=== PATIENT | female | born 1965 | race Caucasian/White ===

== ENCOUNTER 2022-05-07 07:05 | Emergency (ER) | payer OTHER, SELFPAY ==
[2022-05-07 07:12] VITALS: BP 140/95; PULSE 78; RESP 18; TEMP 36.4; O2SAT 95; BMI 38.7
[2022-05-07 07:30] VITALS: BP 139/89; PULSE 74; O2SAT 93
[2022-05-07 07:50] VITALS: PULSE 73; O2SAT 94
--- NOTE | 2022-05-07 07:55 | ED_ITS ---
HPI - Arrhythmia/Palpitations General Chief Complaint: Arrhythmia/Palpitations Stated Complaint: SVT/A-fib Time Seen by Provider: 05/07/22 07:15 Source: patient and family Mode of arrival: ambulatory Limitations: no limitations History of Present Illness HPI narrative: Patient with a history of runs of palpitations since January. Seem to start after she had COVID in December. She has had appropriate and thorough outpatient workup including an 8 day Holter monitor which did show some short bursts of SVT. She had an echo 2 weeks ago and followed up with Cardiology last week. They are recommending conservative management. She does have a known history of hypothyroidism, surgically resected and she is on replacement levothyroxine but reports that her levels are closely monitored. She states that this morning she awoke at around 4:00 a.m. which is about 3 hours prior to presentation with a feeling of rapid heart rate. She wears an Apple watch and did detect the elevated heart rate. It has called these AFib in the past, even episodes that were found to be SVT through the Holter monitor. Come on suddenly and are tend to be relieved suddenly which is more consistent with SVT anyway. She says that the heart rate was ranging about 130-150. She got up walked around thought it would go away and it did not. After about an hour she woke her to let him know that she thought she should seek medical evaluation. She was not experiencing any chest pain or shortness of breath. Her oncology patient navigator it said that it can be helpful if she has these episodes to try to catch them on a 12 lead EKG. She got the shower in shortly after getting out of the shower started coming to the hospital when she realized that she had flipped out of the rhythm. She 2nd guess coming in for evaluation but since she was already here thought it best to do so. At the time of my interview and at triage she is completely asymptomatic. She has no prior history of coronary artery disease. She does not smoke, no prior history of PE. Does not take anticoagulants. Did not try any vagal maneuvers at home to try to relieve her symptoms and was unsure of what these were when I discussed them with her. Past medical history notable for hypothyroidism, surgically induced, anxiety. Medications, past medical history, surgical history and allergies and social history reviewed from the [facility] records. Related Data Home Medications Medication Instructions Recorded Confirmed buspirone 10 mg tablet mg 05/07/22 fluticasone propionate 50 intranasal 05/07/22 mcg/actuation nasal spray,suspension hydroxyzine HCl 10 mg tablet mg 05/07/22 levothyroxine 150 mcg tablet mcg 05/07/22 lorazepam 0.5 mg tablet mg 05/07/22 mirtazapine 30 mg tablet mg 05/07/22 Allergies Allergy/AdvReac Type Severity Reaction Status Date / Time SSRI Allergy Uncoded 05/07/22 07:19 Review of Systems Status of ROS: Reports: 10 or more systems reviewed and unremarkable except as noted in History and below [facility] Social History Smoking Status: Never smoker Do you use any of these nicotine containing products: None Second hand tobacco smoke exposure: No How often do you have a drink containing alcohol: monthly or less How many standard drinks containing alcohol do you have on a typical day: 1 or 2 How often do you have six or more drinks on one occasion: Never AUDIT-C Alcohol total score: 1 Non-prescribed substance use: denies use Exam Const: Vital Signs, click to edit/add: Vital Signs - 24 hr 05/07/22 07:12 05/07/22 07:50 05/07/22 07:30 Temperature 97.6 F Pulse Rate [Right Pulse Oximeter] 78 73 74 Respiratory Rate 18 Blood Pressure [Le ft Upper Arm] 140/95 H 139/89 Pulse Oximetry 95 94 93 Oxygen Delivery Me thod Room Air Room Air Room Air Documenting provider has reviewed patient's vital signs: yes Common nor mals: no apparent distress General appearance: cooperative, comfortable and well kempt HENMT: Common normals: normocephalic Head and scalp: normocephalic Mouth: oral and palatal mucosa normal Throat: posterior oropharynx normal Eye: Common normals: conjunctivae normal and no scleral icterus Conjunctiva: conjunctiva(e) normal Neck & C-Spine: Common normals: full ROM and no lymphadenopathy Resp: Common normals: normal respiratory effort, no use of accessory muscles and clear to auscultation bilaterally Effort & inspection: able to speak in complete sentences Auscultation: clear to auscultation bilaterally Cardio: Common normals: regular rate, regular rhythm, S1 normal heart sound, S2 normal heart sound, no murmurs and peripheral pulses 2+ throughout Rate: regular rate Rhythm: regular rhythm Heart sounds: S1 normal and S2 normal Peripheral pulses: pulses 2+ throughout Extremity: Common normals: normal to inspection and no pedal edema Neuro: Speech: speech normal Motor exam: no tremor noted Psych: Common normals: thought process normal, cooperative and affect normal Appearance: well kempt Thought process: normal thought process Insight: insight good Judgement: judgment good Skin: Common normals: no rashes or lesions noted General skin exam: no rashes or lesions noted Course Vital Signs Vital signs: Initial Vital Signs Temperature 97.6 F 05/07/22 07:12 Temperature Source Temporal Artery Scan 05/07/22 07:12 Pulse Rate 78 05/07/22 07:12 Respiratory Rate 18 05/07/22 07:12 Blood Pressure 140/95 H 05/07/22 07:12 Blood Pressure Mean 110 05/07/22 07:12 Blood Pressure Position Supine 05/07/22 07:12 Pulse Oximetry 95 05/07/22 07:12 Oxygen Delivery Method 05/07/22 07:12 Vital Signs Temperature 97.6 F 05/07/22 07:12 Pulse Rate 78 05/07/22 07:12 Respiratory Rate 18 05/07/22 07:12 Blood Pressure 140/95 H 05/07/22 07:12 Pulse Oximetry 95 05/07/22 07:12 Oxygen Delivery Method 05/07/22 07:12 Temperature 97.6 F 05/07/22 07:12 Pulse Rate 73 05/07/22 07:50 Respiratory Rate 18 05/07/22 07:12 Blood Pressure 139/89 05/07/22 07:30 Pulse Oximetry 94 05/07/22 07:50 Oxygen Delivery Method 05/07/22 07:50 MDM - Arrhythmia/Palpitations MDM Narrative Medical decision making narrative: Differential diagnosis including arrhythmias specifically SVT, AFib in a flutter. Less likely coronary artery disease, pulmonary embolism, gastrointestinal source, asthma. Patient symptoms came on quickly and resolved quickly which is most consistent with SVT which was also shown on her Holter monitor. EKG is performed here in the emergency department showing normal sinus rhythm with no signs of arrhythmia. I discussed this with her and since she is asymptomatic, she is agreeable to not doing any further workup at this time. I am reassured by her previous Holter monitor, cardiology consult and echo which have been performed just in the last couple of weeks. We did spend some time discussing vagal maneuvers, when to come to the emergency department in the setting of SVT and she was thankful for this. We also discussed the beta- david therapy of her episodes become more frequent and how the side effects may be more harmful than helpful with her current frequency. Often if these are viral induced, she will outgrow these but it can take a year or 2. She will f ollow up with her primary care provider if she is having 2 or more episodes per month. ECG Data Attestation: I personally reviewed and interpreted this ECG as follows: Interpretation: Normal sinus rhythm, no signs of arrhythmia. Normal axis. Rate in the 70s. No ST or T-wave abnormalities Discharge Plan Discharge Clinical Impression: H/O supraventricular tachycardia Patient Disposition: Home w/ Parent or Adult Condition: Improved Instructions: Supraventricular Tachycardia (ED) Additional Instructions: Your episode sounds consistent with your known history of supraventricular tachycardia. These are very common in women. They are also more common if he recently had a viral illness such as COVID. For most people, they do improve significantly after a couple of years which is reassuring. It sounds as though you have had a thorough and very appropriate cardiac workup. I feel reassured by this. I do not recommend any additional blood tests or workup today since your heart has slipped back into normal rhythm. As we discussed, there are medications that can lessen the chance of you having this abnormal rhythm but I do not recommend them for you as they tend to have a lot of side effects. If you keep having episodes frequently meaning more than a couple of times per month, starting 1 of those medications may be beneficial for you. I important that you learn vagal maneuvers. These are ways to stimulate the vagus nerve which also happens to govern heart rhythms in some conditions. It is a good idea to try these at home as most of the time it will relieve your symptoms. Your more likely to get episodes of SVT after drinking alcohol, often the day before. Consider avoiding alcohol if you notice a link to these. Some people also get less episodes if they take an [id number] magnesium supplement at bedtime but the warrant, in some people these may cause diarrhea. If you tolerate it well, this may be a great mid level practitioner option for you. If you are having a heart rate consistently over 140 and your unable to relieve the rhythm with your vagal maneuvers and the episode has lasted over an hour, start your way to the emergency department. If your symptoms resolve on the way, you do not need to be re-evaluated unless you are having persistent severe shortness of breath, chest pain or experiencing those symptoms at any point with your high heart rate. Prescriptions: No Action lorazepam 0.5 mg tablet Label Comments: TAKE ONE TABLET (0.5MG) BY MOUTH ONCE DAILY. MAY TAKE AN ADDITIONAL 1/2 TO 1 TABLET UP TO ONCE DAILY NEEDED FOR ACUTE ANXIETY/PANIC mirtazapine 30 mg tablet Label Comments: TAKE ONE TABLET(30MG) BY MOUTH AT BEDTIME buspirone 10 mg tablet Label Comments: TAKE ONE TABLET (10MG) BY MOUTH THREE TIMES DAILY ALONG WITH 1-7.5MG TABLET levothyroxine 150 mcg tablet Label Comments: TAKE ONE TABLET BY MOUTH EVERY OTHER DAY, ALTERNATING WITH 175MCG TABLET hydroxyzine HCl 10 mg tablet Label Comments: TAKE ONE TABLET BY MOUTH TWICE A DAY NEEDED FOR ANXIETY fluticasone propionate 50 mcg/actuation spray,suspension INTRANASAL Label Comments: INSTILL 1-2 SPRAYS INTO BOTH NOSTRILS ONCE DAILY Follow Up/Referrals: Laurie Abdi MD [Primary Care Provider] - Stand Alone Forms: World[employer] Info Instructions
== END 2022-05-07 08:01 | disposition home or self-care (01) ==
PROVIDERS: Emergency Provider Family Medicine; PCP Family Medicine
DX: R00.2 Palpitations (principal)
CPT/HCPCS: 93005; 99282; 99283